=== PATIENT | female | born 1940 | race Caucasian/White ===

== ENCOUNTER → 2021-03-07 | Emergency (ER) | payer MEDICARE ==
[~2021-03-07] MED LIST: ATR0.5NEB IH; ATRNS NAS; CALC-97 PO; COLE1TAB4 PO; DIPH1TAB PO; ESCI-8 PO; GABA300C PO; HYOS0.3737 PO; LEVO125T PO; MELA3TAB70 PO; MELO-102 PO; MULT-687 PO; PILO5TAB10 PO; PRED5TAB PO; [UNRECOGNIZED DRUG - OTHER] EACHEYE
[2021-03-07 19:46] LABS: BASOPHILS % (AUTO) 0.8 % (0-1); EOSINOPHILS # (AUTO) 0.2 X10'3 (0-0.9); EOSINOPHILS % (AUTO) 3.3 % (0-6); HEMATOCRIT 42.6 % (35.0-45.0); HEMOGLOBIN 14.1 g/dl (12.0-16.0); LYMPHOCYTES # (AUTO) 1.9 X10'3 (1.1-4.8); LYMPHOCYTES % (AUTO) 35.1 % (21-51); MEAN CORPUSCULAR HEMOGLOBIN 32.2 PG (27.0-31.0); MEAN CORPUSCULAR HGB CONC 33.2 g/dL (33.0-36.5); MEAN PLATELET VOLUME 7.8 FL (7.4-10.4); MONOCYTES # (AUTO) 0.4 X10'3 (0-0.9); MONOCYTES % (AUTO) 7.6 % (2-12); NEUTROPHILS # (AUTO) 2.9 X10'3 (1.8-7.7); NEUTROPHILS % (AUTO) 53.2 % (42-75); PLATELET COUNT 195 X10'3 (140-440); RED BLOOD COUNT 4.39 X10'6 (4.20-5.60); RED CELL DISTRIBUTION WIDTH 14.5 % (11.5-14.5); WHITE BLOOD COUNT 5.4 X10'3 (4.5-11.0)
[2021-03-07 20:20] LABS: ALANINE AMINOTRANSFERASE 26 U/L (12-78); ALBUMIN 3.6 G/DL (3.4-5.0); ALBUMIN/GLOBULIN RATIO 1.1 (1.1-1.5); ALKALINE PHOSPHATASE 111 IU/L (46-116); ANION GAP 6 (8-16); ASPARTATE AMINO TRANSFERASE 27 U/L (10-37); BILIRUBIN,TOTAL 0.3 MG/DL (0.1-1.0); BLOOD UREA NITROGEN 15 MG/DL (7-18); CALCIUM 8.4 MG/DL (8.5-10.1); CHLORIDE 107 MMOL/L (99-107); CREATININE 0.88 MG/DL (0.40-0.90); GLUCOSE 91 MG/DL (70-104); SODIUM 142 MMOL/L (135-145); TOTAL CARBON DIOXIDE 28.8 MMOL/L (24-32); eGFR 62 ML/MIN
[2021-03-07 20:26] LABS: D-DIMER 0.27 MG/L FEU (0-0.50)
[2021-03-07 21:05] VITALS: BP 128/62
== END | disposition home or self-care (01) ==
LOC: ER 18:57
DX: R07.89 Other chest pain (principal); R06.02 Shortness of breath; R51.9 Headache, unspecified; E07.9 Disorder of thyroid, unspecified; Z91.011 Allergy to milk products; Z88.8 Allergy status to other drugs, medicaments and biological substances; Z79.899 Other long term (current) drug therapy
CPT/HCPCS: 36415; 71045; 80053; 83880; 84484; 85025; 85379; 93005; 99285

== ENCOUNTER 2021-06-23 10:09 | Day surgery (SDC) | payer MEDICARE ==
[2021-06-18 13:48] LABS: BASOPHILS % (AUTO) 0.8 % (0-1); EOSINOPHILS # (AUTO) 0.1 X10'3 (0-0.9); EOSINOPHILS % (AUTO) 2.6 % (0-6); HEMATOCRIT 42.6 % (35.0-45.0); HEMOGLOBIN 14.3 g/dl (12.0-16.0); LYMPHOCYTES # (AUTO) 1.5 X10'3 (1.1-4.8); LYMPHOCYTES % (AUTO) 33.2 % (21-51); MEAN CORPUSCULAR HEMOGLOBIN 32.4 PG (27.0-31.0); MEAN CORPUSCULAR HGB CONC 33.7 g/dL (33.0-36.5); MEAN CORPUSCULAR VOLUME 96.1 FL (78-98); MEAN PLATELET VOLUME 7.8 FL (7.4-10.4); MONOCYTES # (AUTO) 0.4 X10'3 (0-0.9); MONOCYTES % (AUTO) 8.1 % (2-12); NEUTROPHILS # (AUTO) 2.5 X10'3 (1.8-7.7); NEUTROPHILS % (AUTO) 55.3 % (42-75); PLATELET COUNT 226 X10'3 (140-440); RED BLOOD COUNT 4.43 X10'6 (4.20-5.60); RED CELL DISTRIBUTION WIDTH 14.1 % (11.5-14.5); WHITE BLOOD COUNT 4.6 X10'3 (4.5-11.0)
[2021-06-18 13:55] LABS: PARTIAL THROMBOPLASTIN TIME 26 SECONDS (22-32)
[2021-06-18 13:58] LABS: ALBUMIN 3.6 G/DL (3.4-5.0); ANION GAP 8 (8-16); BLOOD UREA NITROGEN 16 MG/DL (7-18); CALCIUM 8.9 MG/DL (8.5-10.1); CHLORIDE 106 MMOL/L (99-107); CREATININE 0.89 MG/DL (0.40-0.90); GLUCOSE 81 MG/DL (70-104); POTASSIUM 4.4 MMOL/L (3.5-5.1); SODIUM 146 MMOL/L (135-145); eGFR 61 ML/MIN
[~2021-06-23] VITALS: Ht 170.2 cm; Wt 83.9 kg
[2021-06-23] VITALS (9 sets, daily range): BP systolic 125–172; BP diastolic 61–110
[2021-06-23] MEDS ORDERED: diphenhydrAMINE 25mg capsule PO PRN (10:35)
[2021-06-23] MEDS ORDERED: LORazepam 0.5 MG tablet PO PRN (10:35)
[2021-06-23] MEDS ORDERED: normal saline 1,000 ML IV SCH (10:35)
[2021-06-23] MEDS ORDERED: LIDOcaine/PRILOcaine 5gm cream TP ONE (10:35)
[2021-06-23] MEDS ORDERED: PANT40TA54 PO (11:10)
[2021-06-23] MEDS ORDERED: CELE-85 PO (11:10)
[2021-06-23] MEDS ORDERED: CARB200T8 PO (11:10)
[2021-06-23] MEDS ORDERED: GABA100C PO (11:10)
[2021-06-23] MEDS ORDERED: LEVO137T2 PO (11:10)
[2021-06-23] MEDS ORDERED: CHOL100046 PO (11:11)
[2021-06-23] MEDS ORDERED: BENEFIBER PO (11:13)
[2021-06-23] MEDS ORDERED: verapamil 2.5 mg/ml inj IV ONE (14:14)
[2021-06-23] MEDS ORDERED: nitroGLYCERIN-Tridil 50MG/D5W 250 ML IV ONE (14:14)
[2021-06-23] MEDS ORDERED: heparin 1,000unit/ml 10ml vial 10 ML ONE (14:15)
[2021-06-23] MEDS ORDERED: iohexol 350MG/ML 100ml bottle IV ONE ×2 (14:15→14:41)
[2021-06-23] MEDS ORDERED: LIDOcaine 1% (10mg/ml)w/preservative injection 20ml MDV ONE (14:15)
[2021-06-23] MEDS ORDERED: midazolam 1 mg/ML 2ml injection ONE (14:17)
[2021-06-23] MEDS ORDERED: fentaNYL/PF 50MCG/1 ML 2ML syringe ONE (14:17)
[2021-06-23] MEDS ORDERED: proCHLORperazine 10 MG/2 ml inj IV PRN (15:45)
[2021-06-23] MEDS ORDERED: HYDROcodone/acetaminophen 10/325mg tab PO PRN (15:45)
[2021-06-23] MEDS ORDERED: HYDROcodone/acetaminophen 5mg/325mg tablet PO PRN (15:45)
[2021-06-23] MEDS ORDERED: ondansetron/PF 4mg/2ml inj IV PRN (15:45)
[2021-06-23] MEDS ORDERED: OXAZEpam 15mg capsule PO PRN (15:45)
== END 2021-06-23 18:01 | disposition home or self-care (01) ==
LOC: SSTAY O 10:09
PROVIDERS: ATTEND Internal Medicine Interventional Cardiology
DX: R07.89 Other chest pain (principal); R06.02 Shortness of breath; E03.9 Hypothyroidism, unspecified; K21.9 Gastro-esophageal reflux disease without esophagitis; E78.5 Hyperlipidemia, unspecified; I49.3 Ventricular premature depolarization; Z79.899 Other long term (current) drug therapy
CPT/HCPCS: 36415; 80048; 85025; 85610; 85730; 93005; 93460; 99152; C1769; C1894; J1644; J2001; J2250; J3010; J7030; Q0163; Q9967; 99153; A4620; A6258; C1751; J3490